=== PATIENT | female | born 1930 | race Caucasian/White ===

== ENCOUNTER 2017-01-08 10:39 | Emergency (ER) | payer MEDICARE, BC ==
[~2017-01-08] VITALS: Ht 162.6 cm; Wt 61.0 kg
[2017-01-08 10:45] VITALS: BP 129/73; PULSE 62; RESP 16; TEMP 97.5; O2SAT 96
[2017-01-08] MEDS ORDERED: ATOR40TA16 PO (10:56)
[2017-01-08] MEDS ORDERED: ASPI1TAB69 PO (10:56)
[2017-01-08] MEDS ORDERED: QUIN1TAB11 PO (10:56)
[2017-01-08] MEDS ORDERED: CALCCHW9 CHEW (10:56)
--- NOTE | 2017-01-08 11:12 | PD ---
HPI Chief Complaint: Fall Time Seen by Provider: 11:12 Travel History International Travel<30 days: No Contact w/Intl Traveler<30days: No Traveled to known affect area: No History of Present Illness HPI 86-year-old female presents the emergency department status post fall at local bank. Patient tripped on a curb and fell causing an abrasion to her right knee and right elbow, and bruising her right alevism. Patient denies neck pain or loss of consciousness. She was ambulatory at the scene. She is able to move her right arm without difficulty although the area of abrasion is sore. Patient is otherwise alert and oriented. She is unsure of her last tetanus shot. She has no known drug allergies. PFSH Past Medical History Hx Anticoagulant Therapy: No Cardiovascular Problems: Yes (CHOL) High Cholesterol: Yes Cerebrovascular Accident: Yes (CVA) Diabetes: No Respiratory: No Tetanus Vaccination: Unknown Influenza Vaccination: Yes Menopausal: Yes Past Surgical History Abdominal Surgery: Yes (COLON RESECTION: [place]) Tonsillectomy: Yes Social History Alcohol Use: Yes (WINE OR BEER DAILY) Tobacco Use: No Substance Use: No Allergies-Medications (Allergen,Severity, Reaction): Coded Allergies: No Known Allergies (Unverified , 01/08/17) Reported Meds & Prescriptions Reported Meds & Active Scripts Active Reported Calcium 1200 (Calcium Carbonate-Vitamin D W/Minerals) 1,200-1,000 Mg-Unit Chew 1 Tab CHEW DAILY Aspirin 81 Mg Tabdr 81 Mg PO DAILY Quinapril (Quinapril HCl) 10 Mg Tab Unknown Dose PO DAILY Atorvastatin (Atorvastatin Calcium) 40 Mg Tab 40 Mg PO HS Review of Systems Except as stated in HPI: all other systems reviewed are Neg General / Constitutional: No: Fever Eyes: No: Visual changes HENT: No: Headaches Cardiovascular: No: Chest Pain or Discomfort Respiratory: No: Shortness of Breath Gastrointestinal: No: Abdominal Pain Genitourinary: No: Dysuria Musculoskeletal: No: Pain Skin: No Rash Neurologic: No: Weakness Psychiatric: No: Depression Endocrine: No: Polydipsia Hematologic/Lymphatic: No: Easy Bruising Physical Exam Narrative GENERAL: Patient appears in no acute distress. SKIN: Warm and dry. Normal color. Normal turgor. Patient has area of bruising with swelling over the right anterior right lower region, without obvious bony tenderness. Patient has small skin tear of the right lateral upper condyle of the elbow, and 1 on the anterior patella. HEAD: SEE SKIN EYES: Pupils equal and round. No scleral icterus. No injection or drainage. ENT: No nasal bleeding or discharge. Mucous membranes pink and moist. No dental injury. Pharynx is normal. Airway is patent. NECK: Trachea midline. No JVD. No bony tenderness. Range of motion is full without tenderness. C-spine is cleared utilizing nexus criteria. CARDIOVASCULAR: Regular rate and rhythm. No murmurs gallops or rubs. RESPIRATORY: No accessory muscle use. Clear to auscultation. Breath sounds equal bilaterally. MUSCULOSKELETAL: Extremities without clubbing, cyanosis, or edema. No obvious deformities. Range of motion is full bilaterally in both upper and lower extremities without difficulty. NEUROLOGICAL: Awake and alert. No obvious cranial nerve deficits. Motor grossly within normal limits. Five out of 5 muscle strength in the arms and legs. Normal speech. PSYCHIATRIC: Appropriate mood and affect; insight and judgment normal. Data Data Last Documented VS Vital Signs Date Time Temp Pulse Resp B/P Pulse Ox O2 Delivery O2 Flow Rate FiO2 01/08/17 10:45 97.5 62 16 129/73 96 Orders Tetanus/Diphtheria Tox Adult (Tetanus/Di (01/08/17 11:15) Ct Brain W/O Iv Contrast(Rout) (01/08/17 11:13) Ice/Cold Pack (01/08/17 11:17) MDM Medical Decision Making Medical Screen Exam Complete: Yes Emergency Medical Condition: Yes Differential Diagnosis Fall. Skin abrasions. Scalp contusion. Narrative Course Patient is medically stable at time of exam. C-spine is cleared utilizing nexus criteria. Wounds are repaired by nursing staff with Steri-Strips and Tegaderm. Tetanus is given IM. CT of the head is ordered. CT shows no acute disease per radiologist. Patient is to take Tylenol or ibuprofen as needed for any aches and pains. Patient is to leave the dressings in place that were placed by nursing staff for the next 3 days. Steri-Strips will come off on their own. Patient follow-up with her primary care physician as needed. Patient can return to emergency Department with any worsening symptoms as necessary. Diagnosis Primary Impression: Fall (on)(from) sidewalk curb, initial encounter Additional Impressions: Abrasion, elbow w/o infection Abrasion of knee, right Qualified Code: S80.211A - Abrasion of knee, right, initial encounter Contusion of scalp, initial encounter Referrals: Primary Care Physician Patient Instructions: Abrasion (ED), General Instructions, Scalp Contusion in Adults (ED) Additional Instructions: CT shows no acute disease per radiologist. Patient is to take Tylenol or ibuprofen as needed for any aches and pains. Patient is to leave the dressings in place that were placed by nursing staff for the next 3 days. Steri-Strips will come off on their own. Patient follow-up with her primary care physician as needed. Patient can return to emergency Department with any worsening symptoms as necessary. Med/Other Pt SpecificInfo: Prescription(s) given Disposition: 01 DISCHARGE HOME Condition: Stable Jason Wolf Jan 08, 2017 11:12
[2017-01-08] MEDS ORDERED: TETANUS/DIPHTHERIA TOXOID ADULT 0.5 ML VIAL IM ONE (11:15)
--- NOTE | 2017-01-08 11:46 | RADHPO ---
EXAM DATE/TIME: 01/08/2017 11:25 [facility] COMPARISON: No previous studies available for comparison. INDICATIONS : Trauma, fall. Right forehead contusion RADIATION DOSE: 62.07 CTDIvol (mGy) MEDICAL HISTORY : Cerebrovascular disease. Carcinoma, colon. SURGICAL HISTORY : Colon resection. ENCOUNTER: Initial ACUITY: 1 day PAIN SCALE: 2/10 LOCATION: Right cranial TECHNIQUE: Multiple contiguous axial images were obtained of the head. Using automated exposure control and adj ustment of the mA and/or kV according to patient size, radiation dose was kept as low as reasonably a chievable to obtain optimal diagnostic quality images. FINDINGS: There is atrophy and encephalomalacia in the right frontal region from remote infarct. No signs of ac kake infarct, hemorrhage, or mass. Calcifications of the carotid and vertebral arteries are noted. No fractures. CONCLUSION: No acute disease. Lucio Ibarra MD on January 08, 2017 at 11:44 Board Certified Radiologist. This report was verified electronically.
== END 2017-01-08 12:02 | disposition home or self-care (01) ==
LOC: PHEFT 10:39
DX: S50.311A Abrasion of right elbow, initial encounter (principal); S80.211A Abrasion, right knee, initial encounter; S00.03XA Contusion of scalp, initial encounter; Z23 Encounter for immunization; E78.00 Pure hypercholesterolemia, unspecified; W01.198A Fall on same level from slipping, tripping and stumbling with subsequent striking against other object, initial encounter; Y93.89 Activity, other specified; Y92.510 Bank as the place of occurrence of the external cause; Y99.9 Unspecified external cause status
CPT/HCPCS: 70450; 90471; 90714